=== PATIENT | female | born 1965 | race Caucasian/White ===

== ENCOUNTER 2018-08-02 08:54 | Day surgery (SDC) | payer BC ==
[2018-08-02] MEDS ORDERED: PROPOFOL 10 MG/ML VIAL IV ONE (08:55)
[2018-08-02] MEDS ORDERED: LIDOCAINE 2% MDV (20MG/ML) 20ML VIAL IV ONE (08:55)
--- NOTE | 2018-08-03 07:20 | Operative Note ---
OPERATION: Screening COLONOSCOPY. PREOPERATIVE DIAGNOSIS: Colon cancer screening, average risk, initial exam. POSTOPERATIVE DIAGNOSIS: Normal exam. ESTIMATED BLOOD LOSS: None. COMPLICATIONS: None. PREPARATION QUALITY: Excellent. PROCEDURE: After informed consent was obtained from the patient, she was placed in the left lateral decubitus position in the endoscopy suite, sedated and monitored by the department of anesthesia. Digital rectal examination was unremarkable. A well-lubricated [id number] colonoscope was inserted into the rectum and advanced to the cecum. Preparation quality was excellent. The cecum, cecal bulb, ileocecal valve, and appendiceal orifice were unremarkable. Two looks in the cecum were performed. The remainder of the ascending colon, transverse colon, descending colon, sigmoid colon, and rectum were unrevealing. Forward and J-turn views of the rectum and anorectum were unremarkable. The endoscope was straightened, the rectal ampulla deflated, and the endoscope was removed. RECOMMENDATIONS: The patient should resume her medications and diet. Based on her average risk and negative exam, I would recommend a repeat exam in 10 years. As always, thank you for allowing me to participate in the healthcare of your patients. CC: DO SHARAN Cantu
== END 2018-08-02 10:55 | disposition home or self-care (01) ==
LOC: HOP 08:54
PROVIDERS: ATTEND Internal Medicine Gastroenterology
DX: Z12.11 Encounter for screening for malignant neoplasm of colon (principal); Z85.9 Personal history of malignant neoplasm, unspecified
CPT/HCPCS: 00812; G0121